=== PATIENT | female | born 1980 ===

== ENCOUNTER 2016-11-13 14:58 | Emergency (ER) | payer MEDICAID ==
[2016-11-13 15:07] VITALS: TEMP 98.3; O2SAT 99
[2016-11-13] MEDS ORDERED: Bacitracin 500 Units/gm Oint Foilpak UD TOP ONE (15:44)
[2016-11-13] MEDS ORDERED: Bacitracin 500 Units/gm Oint Foilpak UD ONE (15:47)
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
[2016-11-13 16:45] VITALS: BP 110/70; PULSE 80; RESP 20
--- NOTE | 2016-11-14 10:46 | RAD ---
PROCEDURE: Radiographs of Nasal Bones HISTORY: nasalk trauma and pain COMPARISON: None available. TECHNIQUE: Frontal and lateral radiographs of the nasal bones. FINDINGS: No fracture of nasal bones visualized. No destructive lesion. The bony nasal septum is intact and midline in position. IMPRESSION: No nasal bone fracture visualized.
== END 2016-11-13 16:59 | disposition home or self-care (01) ==
LOC: C.ER 14:58
DX: S00.33XA Contusion of nose, initial encounter (principal); S40.872A Other superficial bite of left upper arm, initial encounter; S40.871A Other superficial bite of right upper arm, initial encounter; Y04.1XXA Assault by human bite, initial encounter; Y92.9 Unspecified place or not applicable

== ENCOUNTER 2016-12-17 11:31 | Emergency (ER) | payer SELFPAY ==
[2016-12-17 11:43] VITALS: BP 126/82; PULSE 69; RESP 16; TEMP 97.9; O2SAT 99
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
--- NOTE | 2016-12-18 21:25 | CARD ---
APPROVED REPORT EKG Measurement Heart [id number] <Conclusion> Normal sinus rhythm Poor R wave progression maybe positional or due to Anteroseptal infarct, age undetermined Abnormal ECG
== END 2016-12-17 12:29 | disposition home or self-care (01) ==
LOC: C.ER 11:31
DX: F41.9 Anxiety disorder, unspecified (principal); M95.0 Acquired deformity of nose

== ENCOUNTER 2016-12-23 00:50 | Inpatient (IN) | payer OTHER, MEDICAID ==
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
[2016-12-23 01:35] LABS: BASO % 0.6 % (0.0-2.0); EOS # 0.1 K/uL (0.0-0.7); EOS % 1.9 % (0.0-4.0); HEMOGLOBIN 13.6 g/dL (11.0-16.0); LYMPH # 2.4 K/uL (1.0-4.3); MEAN CELL VOLUME 89.4 fL (81.0-99.0); MEAN CORPUSCULAR HEMOGLOBIN 29.2 pg (27.0-31.0); MEAN CORPUSCULAR HGB CONC 32.6 g/dL (33.0-37.0); MEAN PLATELET VOLUME 9.7 fL (7.2-11.7); MONO # 0.6 K/uL (0.0-0.8); MONO % 7.6 % (0.0-10.0); NEUT # 4.5 K/uL (1.8-7.0); NEUT % 58.9 % (50.0-75.0); RBC 4.65 Mil/uL (3.80-5.20); RED CELL DISTRIBUTION WIDTH 13.8 % (11.5-14.5); WHITE BLOOD COUNT 7.6 K/uL (4.8-10.8)
[2016-12-23] MEDS ORDERED: Lidocaine 2% w Epi 1:100,000 Inj IJ ONE ×2 (01:41→01:45)
[2016-12-23 01:47] LABS: GFR AFRICAN-AMERICAN > 60; GFR NON-AFRICAN AMERICAN > 60
[2016-12-23 01:48] LABS: ALT/SGPT 27 U/L (9-52); AST/SGOT 25 U/L (14-36); BLOOD UREA NITROGEN 9 mg/dL (7-17)
[2016-12-23 01:49] LABS: CALCIUM 8.6 mg/dl (8.6-10.4)
[2016-12-23 02:51] LABS: SQUAMOUS EPITHIAL 2 /hpf (0-5); URINE BACTERIA RARE (<OCC); URINE BILIRUBIN NEGATIVE (NEGATIVE); URINE BLOOD NEGATIVE (NEGATIVE); URINE CLARITY Clear (Clear); URINE COLOR Yellow (YELLOW); URINE GLUCOSE (UA) NORMAL (Normal); URINE LEUKOCYTE ESTERASE 1+ Leu/uL (Negative); URINE NITRATE NEGATIVE (NEGATIVE); URINE PROTEIN NEGATIVE (NEGATIVE); URINE UROBILINOGEN NORMAL mg/dL (0.2-1.0)
[2016-12-23 02:52] LABS: HCG,QUALITATIVE URINE NEGATIVE (NEGATIVE)
[2016-12-23 03:03] LABS: BARBITURATES, UR NEGATIVE (NEGATIVE)
[2016-12-23 03:07] LABS: OPIATES, UR NEGATIVE (NEGATIVE)
[2016-12-23 03:08] LABS: PHENCYCLIDINE, UR NEGATIVE (NEGATIVE)
[2016-12-23 03:11] LABS: BENZODIAZEPINES, UR POSITIVE (NEGATIVE)
--- NOTE | 2016-12-23 09:11 | RAD ---
PROCEDURE: Radiographs of Nasal Bones HISTORY: pain COMPARISON: None available. TECHNIQUE: Frontal and lateral radiographs of the nasal bones. FINDINGS: No fracture of nasal bones visualized. No destructive lesion. IMPRESSION: No nasal bone fracture visualized.
--- NOTE | 2016-12-23 09:12 | RAD ---
PROCEDURE: Left Ankle Radiographs. HISTORY: pain COMPARISON: None FINDINGS: BONES: No acute fracture identified. Status post ORIF medial malleolar and distal fibular fractures. Anatomic alignment. Fracture lines not visualized. JOINTS: Normal. No osteoarthritis. Ankle mortise maintained. Talar dome intact SOFT TISSUES: Normal. OTHER FINDINGS: None. IMPRESSION: No acute fracture. ORIF distal fibular and medial malleolar fractures.
[2016-12-23 10:35] VITALS: O2SAT 97
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
--- NOTE | 2016-12-25 15:12 | PCM.PYCHPN ---
Psychiatric Progress Note - Psychiatric Progress Note Patient seen today, length of contact: 16 min Patient Chief Complaint: 'I feel okay' Problems Identified/Issues Discussed: Patient seen and evaluated, chart reviewed and discussed with the nurse. The patient reports improvement in her mood but she remained irritable and agitated. She signed a 48 hours notice. She reports somewhat improvement in her symptoms, but she remained isolated and continued to pace back and forth in the hallways. The pt is compliant with medications and reports no side-effects. Symptoms are improving but needs more time to stabilize. After care discussed, support and psychoeducation given. Medication Change: No Medical Record Reviewed: Yes Mental Status Examination - Cognitive Function Orientation: Person, Place, Situation, Time Memory: Intact Attention: WNL Concentration: WNL Association: WNL Fund of Knowledge: Poor - Mood Mood: Depressed, Anxious - Affect Affect: Constricted, Depressed - Speech Speech: Soft - Formal Thought Process Formal Thought Process: No Impairment - Suicidal Ideation Suicidal Ideation: No - Homicidal Ideation Homicidal Ideation: No Goal/Treatment Plan - Goal/Treatment Plan Need for Continued Stay: Remain at risks for inpatient hospitalization, Discharge may exacerbated symptoms, Severe functional impairment Progress Toward Problem(s) and Goals/Treatment Plan: Bipolar disorder depressed sever without psychotic features CBT Psychoeducation Supportive therapy, group therapy, individual therapy Oxcarbazepine 150 mg PO BID Prozac 20 gm PO Daily Neurontin 300 mg by mouth 3 times a day Trazodone 50 mg by mouth daily at bedtime Alcohol use disorder moderate CBT Psychoeducation Supportive therapy, individual therapy Use [place] for abstinence
--- NOTE | 2016-12-25 15:50 | PCM.PYCHPN ---
Psychiatric Progress Note - Psychiatric Progress Note Patient seen today, length of contact: 16 min Patient Chief Complaint: 'I feel okay' Problems Identified/Issues Discussed: Patient is seen, evaluated, and case discussed with staff. Patient states that she feels better, but is drowsy because she could not sleep until 5 am. She denies any delusions, hallucinations, or suicidal ideations. As per the staff, her BP remained low with morning measurements of 92/52, and all medications except Prozac and Claritin were held in the morning. Patient states she has UTI and is requesting a consult. Patient appears agitated. She states that she attends group therapy. Patient is complaint with all medications, and reports no side effects. Support and psychoeducation given. Medication Change: Yes Medical Record Reviewed: Yes Mental Status Examination - Cognitive Function Orientation: Person, Place, Situation, Time Memory: Intact Attention: Poor Concentration: Poor Association: Loose Fund of Knowledge: Poor - Mood Mood: Depressed, Anxious - Affect Affect: Constricted, Depressed - Speech Speech: Soft - Formal Thought Process Formal Thought Process: No Impairment - Suicidal Ideation Suicidal Ideation: No - Homicidal Ideation Homicidal Ideation: No Goal/Treatment Plan - Goal/Treatment Plan Need for Continued Stay: Remain at risks for inpatient hospitalization, Discharge may exacerbated symptoms, Severe functional impairment Progress Toward Problem(s) and Goals/Treatment Plan: Bipolar disorder depressed sever without psychotic features CBT Psychoeducation Supportive therapy, group therapy, individual therapy Oxcarbazepine 150 mg PO BID Prozac 20 gm PO Daily Neurontin 100 mg by mouth 3 times a day Trazodone 50 mg by mouth daily at bedtime Alcohol use disorder moderate CBT Psychoeducation Supportive therapy, individual therapy Use [place] for abstinence - Smoking Cessation Smoking Cessation Initiated: No
[2016-12-25] MEDS: Tmp-Smz 800 mg-160 mg DS Tab PO SCH (17:45)
--- NOTE | 2016-12-25 19:11 | CP.PCM.CON ---
<Tereza Larsen - Last Filed: 12/25/16 19:26> History of Present Illness - History of Present Illness History of Present Illness: Medical Consult for Hypotension Ms. Bradshaw is a 36yo female PMHx of depression and bipolar disorder admitted to psych after suicide attempt (12/23) currently complaining of low blood pressure. Routine vitals checks have shown her BP has steadily been 80-95/45-60 during this hospital stay, while normal is 120/80. Patient has head episodes of low blood pressure in the past. Patient is eating and drinking everything offered during meal times. Patient also complains of vaginal itching. Denies dizziness, fainting, change in vision, headache, n/v, f/c, fatigue, night sweats , palpitations, chest pain, difficulty breathing, confusion. PMH: denies medical history, positive psych history Medications: psych meds Allergies: Risperdal - angioedema Giadon - angioedema Social: denies ever smoking, alcohol, drugs. Currently lives with uncle. Not working, on disability. Fam: grandmother: CAD, pacemaker. COPD/asthma Surgical Hx: left ankle surgery unspecified, 2010 Review of Systems - Constitutional Constitutional: absent: Headache, Weakness - EENT Eyes: absent: Blurred Vision, Change in Vision Ears: absent: Decreased Hearing Nose/Mouth/Throat: absent: Nasal Congestion, Post Nasal Drip - Cardiovascular Cardiovascular: Lightheadedness. absent: Chest Pain, Chest Pain with Activity, Dyspnea on Exertion, Edema, Irregular Heart Rhythm Additional comments: lightheaded when waking up which resolves within 2-3 minutes - Respiratory Respiratory: absent: Cough, Dyspnea, Wheezing, Stridor - Gastrointestinal Gastrointestinal: absent: Constipation, Diarrhea - Genitourinary Genitourinary: absent: Difficulty Urinating, Urinary Urgency, Freq UTI - Musculoskeletal Musculoskeletal: absent: Muscle Weakness, Numbness, Stiffness, Tingling - Integumentary Integumentary: absent: Changing Lesions, Pruritus, Swelling - Neurological Neurological: Weakness. absent: Sensory Deficit, Tingling, Vertigo - Psychiatric Additional comments: as per psych - Endocrine Endocrine: absent: Fatigue, Heat Intolorance, Palpitations, Polyuria - Hematologic/Lymphatic Hematologic: absent: Easy Bleeding, Easy Bruising Past Patient History - Infectious Disease Hx of Infectious Diseases: None - Past Social History Smoking Status: Never Smoked - CARDIAC Hx Cardiac Disorders: No Hx Hypertension: No - PULMONARY Hx Tuberculosis: No - NEUROLOGICAL HX Cerebrovascular Accident: No Hx Seizures: No - HEENT Hx HEENT Problems: No - RENAL Hx Chronic Kidney Disease: No - ENDOCRINE/METABOLIC Hx Endocrine Disorders: No - HEMATOLOGICAL/ONCOLOGICAL Hx Cancer: No Hx Human Immunodeficiency Virus (HIV): No - INTEGUMENTARY Hx Dermatological Problems: No - MUSCULOSKELETAL/RHEUMATOLOGICAL Hx Musculoskeletal Disorders: No - GASTROINTESTINAL Hx Gastrointestinal Disorders: No - GENITOURINARY/GYNECOLOGICAL Hx Sexually Transmitted Disorders: No - PSYCHIATRIC Hx Substance Use: No - SURGICAL HISTORY Hx Surgeries: Yes Other/Comment: left ankle, aesthetic - nose job - ANESTHESIA Hx Anesthesia: Yes Hx Anesthesia Reactions: No Meds Home Medications: Home Medication List Medication Instructions Recorded Confirmed Type FLUoxetine [Prozac] 20 mg PO DAILY #30 cap 12/25/16 Rx Gabapentin [Neurontin] 600 mg PO TID #90 cap 12/25/16 Rx OXcarbazepine [Trileptal] 150 mg PO BID #60 tab 12/25/16 Rx Sulfamethoxazole/Trimethoprim 1 tab PO Q12H #10 tab 12/25/16 Rx [Bactrim DS Tab] Allergies/Adverse Reactions: Allergies Allergy/AdvReac Type Severity Reaction Status Date / Time risperidone [From Risperdal] AdvReac ANGIOEDEMA Verified 12/23/16 01:13 ziprasidone [From Geodon] AdvReac ANGIOEDEMA Verified 12/23/16 01:13 - Medications Medications: Current Medications Benztropine Mesylate (Cogentin) 2 mg PO Q6 PRN PRN Reason: Extra Pyramidal Symptoms Clonazepam (Klonopin) 1 mg PO BID [facility] Last Admin: 12/25/16 14:42 Dose: 1 mg Diphenhydramine HCl (Benadryl) 50 mg PO Q6 PRN PRN Reason: Extra Pyramidal Symptoms Last Admin: 12/25/16 02:55 Dose: 50 mg Fluoxetine HCl (Prozac) 20 mg PO DAILY [facility] Last Admin: 12/25/16 10:34 Dose: 20 mg Gabapentin (Neurontin) 600 mg PO TID [facility] Last Admin: 12/25/16 17:20 Dose: 600 mg Haloperidol (Haldol) 5 mg PO Q8 PRN PRN Reason: Moderate Agitation Haloperidol Lactate (Haldol) 5 mg IM Q8 PRN PRN Reason: Moderate Agitation Hydroxyzine HCl (Atarax) 25 mg PO Q6H PRN PRN Reason: Anxiety Last Admin: 12/23/16 21:03 Dose: 25 mg Loratadine (Claritin) 10 mg PO DAILY [facility] Last Admin: 12/25/16 10:34 Dose: 10 mg Lorazepam (Ativan) 1 mg PO Q6 PRN PRN Reason: Severe Anxiety Last Admin: 12/25/16 04:01 Dose: 1 mg Oxcarbazepine (Trileptal) 150 mg PO BID [facility] Last Admin: 12/25/16 17:15 Dose: 150 mg Trazodone HCl (Desyrel) 50 mg PO HS [facility] Last Admin: 12/23/16 21:41 Dose: Not Given Trimethoprim/Sulfamethoxazole (Bactrim Ds Tab) 1 tab PO Q12H [facility] Last Admin: 12/25/16 17:45 Dose: 1 tab Physical Exam - Eye Exam Eye Exam: Normal appearance - Neck Exam Neck exam: Positive for: Full Rom. Negative for: Tenderness - Respiratory Exam Respiratory Exam: Clear to Auscultation Bilateral, NORMAL BREATHING PATTERN. absent: Rales, Rhonchi, Wheezes, Respiratory Distress, Stridor - Cardiovascular Exam Cardiovascular Exam: Bradycardia, REGULAR RHYTHM. absent: Gallop, Rubs, Systolic Murmur - GI/Abdominal Exam GI & Abdominal Exam: Normal Bowel Sounds. absent: Distended, Firm, Guarding - Extremities Exam Extremities exam: Positive for: normal inspection. Negative for: pedal edema - Back Exam Back exam: NORMAL INSPECTION - Neurological Exam Neurological exam: Alert, Oriented x3 - Psychiatric Exam Additional comments: refer to psych - Skin Skin Exam: Intact, Normal Color, Warm Results - Vital Signs Recent Vital Signs: Last Vital Signs Temp 97.9 F 12/24/16 07:30 Pulse 67 12/25/16 15:24 Resp 18 12/24/16 07:30 BP 115/77 12/25/16 15:24 Pulse Ox 97 12/23/16 13:25 - Labs Result Diagrams: 12/23/16 01:28 12/23/16 01:28 Assessment & Plan - Assessment and Plan (Free Text) Assessment: 1) Hypotension CBC: no elevated WBC, normal H&H CMP: no electrolyte imbalances EKG: normal sinus rhythm, HR 54 Encourage drinking more water. Monitor for symptoms- vitals q6h 2. Vaginal Pruritis consult [employer], Dr. Almonte, help appreciated 2. Depression/ Bipolar psychiatric management <Juan Ramon Ca - Last Filed: 12/25/16 20:40> Meds - Medications Medications: Current Medications Benztropine Mesylate (Cogentin) 2 mg PO Q6 PRN PRN Reason: Extra Pyramidal Symptoms Clonazepam (Klonopin) 1 mg PO BID [facility] Last Admin: 12/25/16 14:42 Dose: 1 mg Diphenhydramine HCl (Benadryl) 50 mg PO Q6 PRN PRN Reason: Extra Pyramidal Symptoms Last Admin: 12/25/16 02:55 Dose: 50 mg Fluoxetine HCl (Prozac) 20 mg PO DAILY [facility] Last Admin: 12/25/16 10:34 Dose: 20 mg Gabapentin (Neurontin) 600 mg PO TID [facility] Last Admin: 12/25/16 17:20 Dose: 600 mg Haloperidol (Haldol) 5 mg PO Q8 PRN PRN Reason: Moderate Agitation Haloperidol Lactate (Haldol) 5 mg IM Q8 PRN PRN Reason: Moderate Agitation Hydroxyzine HCl (Atarax) 25 mg PO Q6H PRN PRN Reason: Anxiety Last Admin: 12/23/16 21:03 Dose: 25 mg Loratadine (Claritin) 10 mg PO DAILY [facility] Last Admin: 12/25/16 10:34 Dose: 10 mg Lorazepam (Ativan) 1 mg PO Q6 PRN PRN Reason: Severe Anxiety Last Admin: 12/25/16 04:01 Dose: 1 mg Metronidazole (Flagyl) 500 mg PO Q12 [facility] Oxcarbazepine (Trileptal) 150 mg PO BID [facility] Last Admin: 12/25/16 17:15 Dose: 150 mg Trazodone HCl (Desyrel) 50 mg PO HS [facility] Last Admin: 12/23/16 21:41 Dose: Not Given Trimethoprim/Sulfamethoxazole (Bactrim Ds Tab) 1 tab PO Q12H [facility] Last Admin: 12/25/16 17:45 Dose: 1 tab Results - Vital Signs Recent Vital Signs: Last Vital Signs Temp 97.9 F 12/24/16 07:30 Pulse 67 12/25/16 15:24 Resp 18 12/24/16 07:30 BP 115/77 12/25/16 15:24 Pulse Ox 97 12/23/16 13:25 - Labs Result Diagrams: 12/23/16 01:28 12/23/16 01:28 Attending/Attestation - Attestation I have personally seen and examined this patient.: Yes I have fully participated in the care of the patient.: Yes I have reviewed all pertinent clinical information: Yes Notes (Text): 12/25/16 20:40 History, Physical, Assessment and Plan were thoroughly gone over with the Resident Juan Ramon Ca D.O.
--- NOTE | 2016-12-25 20:12 | CP.PCM.CON ---
History of Present Illness - History of Present Illness History of Present Illness: 36 yr h/o depression and bipolar disorder admiited to psychiatry departement for low bp c/o foul smell discharge from few months, no itxching or irrtitation. pt has a h/o bacterial vaginosis. obhx nulligrvida pmh depression/bipolar disorder med as per list all risperidone,ziprasidone soch +drinking sse yellowish whitih discarge,no cmt Past Patient History - Infectious Disease Hx of Infectious Diseases: None - Past Social History Smoking Status: Never Smoked - CARDIAC Hx Cardiac Disorders: No Hx Hypertension: No - PULMONARY Hx Tuberculosis: No - NEUROLOGICAL HX Cerebrovascular Accident: No Hx Seizures: No - HEENT Hx HEENT Problems: No - RENAL Hx Chronic Kidney Disease: No - ENDOCRINE/METABOLIC Hx Endocrine Disorders: No - HEMATOLOGICAL/ONCOLOGICAL Hx Cancer: No Hx Human Immunodeficiency Virus (HIV): No - INTEGUMENTARY Hx Dermatological Problems: No - MUSCULOSKELETAL/RHEUMATOLOGICAL Hx Musculoskeletal Disorders: No - GASTROINTESTINAL Hx Gastrointestinal Disorders: No - GENITOURINARY/GYNECOLOGICAL Hx Sexually Transmitted Disorders: No - PSYCHIATRIC Hx Substance Use: No - SURGICAL HISTORY Hx Surgeries: Yes Other/Comment: left ankle, aesthetic - nose job - ANESTHESIA Hx Anesthesia: Yes Hx Anesthesia Reactions: No Meds Home Medications: Home Medication List Medication Instructions Recorded Confirmed Type FLUoxetine [Prozac] 20 mg PO DAILY #30 cap 12/25/16 Rx Gabapentin [Neurontin] 600 mg PO TID #90 cap 12/25/16 Rx OXcarbazepine [Trileptal] 150 mg PO BID #60 tab 12/25/16 Rx Sulfamethoxazole/Trimethoprim 1 tab PO Q12H #10 tab 12/25/16 Rx [Bactrim DS Tab] Allergies/Adverse Reactions: Allergies Allergy/AdvReac Type Severity Reaction Status Date / Time risperidone [From Risperdal] AdvReac ANGIOEDEMA Verified 12/23/16 01:13 ziprasidone [From Geodon] AdvReac ANGIOEDEMA Verified 12/23/16 01:13 - Medications Medications: Current Medications Benztropine Mesylate (Cogentin) 2 mg PO Q6 PRN PRN Reason: Extra Pyramidal Symptoms Clonazepam (Klonopin) 1 mg PO BID [facility] Last Admin: 12/25/16 14:42 Dose: 1 mg Diphenhydramine HCl (Benadryl) 50 mg PO Q6 PRN PRN Reason: Extra Pyramidal Symptoms Last Admin: 12/25/16 02:55 Dose: 50 mg Fluoxetine HCl (Prozac) 20 mg PO DAILY [facility] Last Admin: 12/25/16 10:34 Dose: 20 mg Gabapentin (Neurontin) 600 mg PO TID [facility] Last Admin: 12/25/16 17:20 Dose: 600 mg Haloperidol (Haldol) 5 mg PO Q8 PRN PRN Reason: Moderate Agitation Haloperidol Lactate (Haldol) 5 mg IM Q8 PRN PRN Reason: Moderate Agitation Hydroxyzine HCl (Atarax) 25 mg PO Q6H PRN PRN Reason: Anxiety Last Admin: 12/23/16 21:03 Dose: 25 mg Loratadine (Claritin) 10 mg PO DAILY [facility] Last Admin: 12/25/16 10:34 Dose: 10 mg Lorazepam (Ativan) 1 mg PO Q6 PRN PRN Reason: Severe Anxiety Last Admin: 12/25/16 04:01 Dose: 1 mg Metronidazole (Flagyl) 500 mg PO Q12 [facility] Oxcarbazepine (Trileptal) 150 mg PO BID [facility] Last Admin: 12/25/16 17:15 Dose: 150 mg Trazodone HCl (Desyrel) 50 mg PO HS [facility] Last Admin: 12/23/16 21:41 Dose: Not Given Trimethoprim/Sulfamethoxazole (Bactrim Ds Tab) 1 tab PO Q12H [facility] Last Admin: 12/25/16 17:45 Dose: 1 tab Physical Exam - Exam External exam: NORMAL EXTERNAL EXAM Speculum exam: Cervical Discharge (yellowish whitish discarge,no cmt) Bimanual exam: NORMAL BIMANUAL EXAM Results - Vital Signs Recent Vital Signs: Last Vital Signs Temp 97.9 F 12/24/16 07:30 Pulse 67 12/25/16 15:24 Resp 18 12/24/16 07:30 BP 115/77 12/25/16 15:24 Pulse Ox 97 12/23/16 13:25 - Labs Result Diagrams: 12/23/16 01:28 12/23/16 01:28 Assessment & Plan - Assessment and Plan (Free Text) Assessment: 36 yr h/o depression/bipolar disorder/hypotension/bacterial vaginitis Plan: plan flagyl 500 mg po x 7 days no alcohol drinking safe sex cont psychiatry management Thank you for consulting us - Date & Time Date: 12/25/16 Time: 20:30
[2016-12-26] MEDS: Tmp-Smz 800 mg-160 mg DS Tab PO SCH (06:31)
[2016-12-26 07:40] VITALS: BP 81/49; PULSE 64; RESP 20; TEMP 98.1
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
--- NOTE | 2017-01-03 16:06 | CARD ---
APPROVED REPORT EKG Measurement Heart [id number] <Conclusion> Sinus bradycardia Otherwise normal ECG
== END 2016-12-26 09:00 | disposition home or self-care (01) | DRG 885 ==
LOC: C.ER 00:50 → C.9OBSV 05:37 → C.9E 11:57 → OBSVTOIN 11:57 → C.5E 13:24
PROC: GZ58ZZZ Individual Psychotherapy, Cognitive-Behavioral (ICD-10-PCS; principal; 2016-12-23)
PROC: GZ56ZZZ Individual Psychotherapy, Supportive (ICD-10-PCS; 2016-12-23)
PROC: GZHZZZZ Group Psychotherapy (ICD-10-PCS; 2016-12-23)
PROC: HZ52ZZZ Individual Psychotherapy for Substance Abuse Treatment, Cognitive-Behavioral (ICD-10-PCS; 2016-12-23)
PROC: HZ59ZZZ Individual Psychotherapy for Substance Abuse Treatment, Supportive (ICD-10-PCS; 2016-12-23)
PROC: HZ56ZZZ Individual Psychotherapy for Substance Abuse Treatment, Psychoeducation (ICD-10-PCS; 2016-12-23)
DX: F31.4 Bipolar disorder, current episode depressed, severe, without psychotic features (principal); I95.9 Hypotension, unspecified; F10.10 Alcohol abuse, uncomplicated; N76.0 Acute vaginitis; Z79.899 Other long term (current) drug therapy

== ENCOUNTER 2017-01-11 13:38 | Emergency (ER) | payer OTHER, MEDICAID ==
[2017-01-11 14:35] VITALS: BP 122/78; PULSE 56; RESP 16; TEMP 97.9; O2SAT 100
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
--- NOTE | 2017-01-15 21:54 | CARD ---
APPROVED REPORT EKG Measurement Heart [id number] <Conclusion> Sinus bradycardia Possible Anteroseptal infarct, age undetermined Abnormal ECG
== END 2017-01-11 15:11 | disposition home or self-care (01) ==
LOC: C.ER 13:38
DX: Z00.8 Encounter for other general examination (principal)